=== PATIENT | female | born 1945 | race Caucasian/White ===

== ENCOUNTER → 2018-03-06 08:59 | Outpatient (CLI) | payer MEDICARE, SELFPAY ==
--- NOTE | 2018-03-06 | DI.MG.S_ITS ---
BILATERAL DIGITAL SCREENING MAMMOGRAM 3D/2D WITH CAD: 03/06/2018 CLINICAL: Routine screening. Comparison is made to exams dated: 03/30/2016 mammogram, 01/07/2014 mammogram, and 05/24/2012 mammogram - [facility]. There are scattered fibroglandular elements in both breasts. Current study was also evaluated with a Computer Aided Detection (CAD) system. No significant masses, calcifications, or other findings are seen in either breast. There has been no significant interval change. IMPRESSION: NEGATIVE There is no mammographic evidence of malignancy. A 1 year screening mammogram is recommended. This exam was interpreted at Station ID: [id number]. NOTE: For mammograms, a report in lay terms will be sent to the patient. Approximately 15% of breast malignancies will not be visualized mammographically. In the management of a palpable breast mass, a negative mammogram must not discourage biopsy of a clinically suspicious lesion. Electronically Signed By: Cristobal bui/sandi:03/06/2018 19:24:26 letter sent: Normal Exam ACR BI-RADS Category 1: Negative 3341F
== END ==
PROVIDERS: PCP Physician Assistant; Visit Provider Physician Assistant
DX: Z12.31 Encounter for screening mammogram for malignant neoplasm of breast (principal)
CPT/HCPCS: 77063; 77067

== ENCOUNTER → 2018-03-07 10:16 | Outpatient (CLI) | payer MEDICARE, SELFPAY ==
[2018-03-07 11:40] LABS: Add Manual Diff / Slide Review NO; Basophils Percent Auto 0.8 % (0-2); Eosinophils Percent Auto 0.5 % (2-4); Hematocrit 41.9 % (36-46); Hemoglobin 14.3 g/dL (12.0-16.0); Lymphocytes Percent Auto 33.2 % (25-40); Mean Corpuscular HGB Conc 34.1 % (30-36); Mean Corpuscular Hemoglobin 30.8 PG (26-34); Mean Corpuscular Volume 90.5 fL (80-100); Monocytes Percent Auto 12.7 % (3-14); Neutrophils Absolute Auto 1700 /uL (3000-5900); Neutrophils Percent Auto 52.8 % (50-75); Platelet Count 228 X10^3/uL (150-400); Red Blood Cell Count 4.62 X10^6/uL (4.0-5.2); Red Cell Distribution Width 13.6 % (11.6-14.8); White Blood Cell Count 3.3 X10^3/uL (4.5-11.0)
[2018-03-07 11:59] LABS: Alanine Aminotransferase 26 IU/L (9-52); Albumin 4.4 g/dL (3.5-5.0); Albumin Globulin Ratio 1.6 (1.0-2.8); Alkaline Phosphatase 74 U/L (38-126); Aspartate Aminotransferase 32 IU/L (14-36); BUN Creatinine Ratio 24.4 (6-22); Bilirubin Total 0.6 mg/dL (0.2-1.3); Blood Urea Nitrogen 22 mg/dL (7-17); Carbon Dioxide 31 mmol/L (22-32); Chloride 102 mmol/L (98-107); Cholesterol 190 mg/dL (140-199); Estimated Glomerular Filt Rate > 60.0 mL/min (>60); Globulin 2.8 g/dL (1.7-4.1); Glucose 98 mg/dL (80-110); HDL Cholesterol 85 mg/dL (40-60); HEMOLYSIS < 15 (0-50); LDL Cholesterol Calculated 92 mg/dL (<100); Potassium 4.4 mmol/L (3.4-5.1); Sodium 141 mmol/L (137-145); Total Protein 7.2 g/dL (6.3-8.2); Triglycerides 63 mg/dL (35-150)
[2018-03-07 12:45] LABS: Thyroid Stimulating Hormone 0.03 uIU/mL (0.47-4.68)
== END ==
PROVIDERS: PCP Physician Assistant; Visit Provider Physician Assistant
DX: E78.5 Hyperlipidemia, unspecified (principal); E03.9 Hypothyroidism, unspecified
CPT/HCPCS: 36415; 80053; 80061; 84443; 85025

== ENCOUNTER → 2018-03-28 09:50 | Outpatient (CLI) | payer MEDICARE, SELFPAY ==
--- NOTE | 2018-03-28 | DI.RAD.S_ITS ---
PROCEDURE: XR CERVICAL SPINE 2V OR 3V INDICATIONS: CERVICAL DISC DISORDER TECHNIQUE: 3 view(s) of the cervical spine were acquired. COMPARISON: None. FINDINGS: Bones: No fractures to the C7 level. A 2 mm anterolisthesis of C3 on C4 is present. Degenerative disc disease C4-5, C5-6 and C6-7. The mild levoconvex curvature. Loss of normal lordosis. The lateral masses of C1 appear intact on the odontoid view. No suspicious bony lesions. Soft tissues: No prevertebral soft tissue swelling. IMPRESSION: Multilevel degenerative disc disease, most marked at C4-5 and C5-6. Mild anterolisthesis C3-4. Dictated by: Bennie Cartagena M.D. on 03/28/2018 at 10:26 Approved by: Bennie Cartagena M.D. on 03/28/2018 at 10:29
== END ==
PROVIDERS: PCP Physician Assistant; Visit Provider Physician Assistant
DX: M50.121 Cervical disc disorder at C4-C5 level with radiculopathy (principal); M43.12 Spondylolisthesis, cervical region
CPT/HCPCS: 72040

== ENCOUNTER → 2018-04-26 10:14 | Outpatient (CLI) | payer MEDICARE, SELFPAY ==
[2018-04-26 11:44] LABS: Thyroid Stimulating Hormone 0.44 uIU/mL (0.47-4.68)
== END ==
PROVIDERS: PCP Physician Assistant; Visit Provider Physician Assistant
DX: E03.9 Hypothyroidism, unspecified (principal)
CPT/HCPCS: 36415; 84443

== ENCOUNTER → 2018-06-05 15:39 | Outpatient (CLI) | payer MEDICARE, SELFPAY ==
--- NOTE | 2018-06-05 | DI.MRI.S_ITS ---
PROCEDURE: MR SHOULDER LT WO CON INDICATIONS: BURSITIS OF LEFT SHOULDER TECHNIQUE: Noncontrast oblique coronal T2 fast spin echo with fat saturation, oblique sagittal T1 spin echo and T2 fast spin echo with fat saturation, axial T1 spin echo and T2 fast spin echo with fat saturation through the shoulder. COMPARISON: None. FINDINGS: Image quality: Excellent. Rotator cuff: Tendinosis and moderate grade articular and bursal surface partial-thickness tear involving distal supraspinatus is seen extending from its insertion on humeral head to be musculotendinous junction. There is suggestion of focal full-thickness perforation involving most posterior fibers of the distal supraspinatus at its humeral head insertion. Tendinosis and moderate grade articular surface partial thickness involving distal infraspinatus is seen at its insertion on humeral head extending to musculotendinous junction. Distal subscapularis tendinosis is seen.. Sagittal images demonstrate mild to moderate supraspinatus muscle atrophy. Bones and bursae: No bone marrow contusions or fractures. Mild to moderate acromioclavicular joint and glenohumeral joint osteoarthritis is seen. The acromion demonstrates conventional anatomy, without an os acromiale. Small amount of fluid is noted within glenohumeral joint and subacromial subdeltoid bursa. Capsule and soft tissues: In the absence of intra-articular contrast, there is suggestion of anterior inferior labral tear at 5 to 6:00 position. The glenohumeral ligaments appear intact. The long head of the biceps tendon demonstrates normal location and morphology. The rotator interval appears normal, without fibrosis. The coracohumeral ligament is normal in thickness. IMPRESSION: 1. Tendinosis and moderate grade articular and bursal surface partial-thickness tear involving distal supraspinatus with suggestion of focal full-thickness perforation involving most posterior fibers of the distal supraspinatus at its insertion on humeral head. Tendinosis and low to moderate grade articular surface partial thickness tear involving distal infraspinatus. Distal subscapularis tendinosis. Mild to moderate supraspinatus muscle atrophy. 2. Mild to moderate glenohumeral joint and acromioclavicular joint osteoarthritis. No fracture or dislocation. 3. Finding is suspicious for anterior inferior labral tear at 5 to 6:00 position. Dictated by: Timmy Maxwell M.D. on 06/05/2018 at 17:07 Approved by: Timmy Maxwell M.D. on 06/05/2018 at 17:14
== END ==
PROVIDERS: PCP Physician Assistant; Visit Provider Orthopaedic Surgery
DX: M75.52 Bursitis of left shoulder (principal); M75.112 Incomplete rotator cuff tear or rupture of left shoulder, not specified as traumatic; M19.012 Primary osteoarthritis, left shoulder
CPT/HCPCS: 73221

== ENCOUNTER → 2018-07-26 16:33 | Outpatient (CLI) | payer MEDICARE, SELFPAY ==
--- NOTE | 2018-07-26 17:13 | DI.MRI.S_ITS ---
PROCEDURE: MR LUMBAR SPINE WO CON INDICATIONS: LUMBOSACRAL RADICULOPATHY AT L5 TECHNIQUE: Noncontrast sagittal T1 spin echo and T2 fast echo, sagittal STIR, axial T1 and T2 fast spin echo through the lumbar spine. In cases with scoliosis, additional coronal T2 fast spin echo may be performed. COMPARISON: [facility], , MRI L-SPINE W/O CONTRAST, 10/10/2005, 9:31. FINDINGS: Image quality: Excellent. Alignment and Curvature: There is straightening of normal lumbar curvature. There is trace retrolisthesis of L4 on L5-L5 on S1. Bone Marrow: Marrow is of normal overall signal. Mild reactive endplate changes are present at L4-5, minimal L5-S1. Increased T1 and T2 signal are present at T12, likely hemangioma. Schmorl's nodes are present at the inferior endplates of L3 and L4 and superior endplate of L4 and L5. There is minimal surrounding reactive edema. No acute vertebral body compression fractures. Spinal Cord: Conus medullaris terminates at the L1 level. Visualized cord demonstrates normal signal and size. Paraspinous Soft Tissues: No paravertebral masses. Discs: Severe desiccation is present L4-L5, mild remainder of the lumbar spine. L1-L2: Minimal disc bulge without spinal stenosis or foraminal narrowing. L2-L3: Minimal disc bulge without spinal stenosis. Minimal left foraminal narrowing with facet and ligamentum flavum hypertrophy. L3-L4: Mild disc bulge with mild to moderate spinal stenosis. Mild to moderate left and minimal right foraminal narrowing with facet flavum hypertrophy. L4-L5: Mild disc bulge with moderate spinal stenosis. Bilateral moderate foraminal narrowing, right greater than left with facet and ligamentum flavum hypertrophy. L5-S1: Mild disc bulge with mild spinal stenosis. There is severe narrowing through the left subarticular recess, moderate on the right. Facet hypertrophy is present. IMPRESSION: 1. Multilevel degenerative changes overall demonstrate multilevel areas of interval progression compared to 2006. 2. Multilevel spinal stenosis most prominent L4-5 secondary to disc bulge with contributing effect of facet/ligament implant arthropathy. 3. Multilevel foraminal narrowing most notable at L4-5 and L5-S1 secondary to facet arthropathy. Dictated by: Luann Clements M.D. on 07/29/2018 at 10:16 Approved by: Luann Clements M.D. on 07/29/2018 at 10:41
== END ==
PROVIDERS: PCP Physician Assistant; Visit Provider Orthopaedic Surgery
DX: M47.26 Other spondylosis with radiculopathy, lumbar region (principal); M47.27 Other spondylosis with radiculopathy, lumbosacral region; M48.061 Spinal stenosis, lumbar region without neurogenic claudication; M48.07 Spinal stenosis, lumbosacral region
CPT/HCPCS: 72148

== ENCOUNTER → 2018-09-23 09:00 | Outpatient (CLI) | payer MEDICARE, SELFPAY ==
--- NOTE | 2018-09-23 09:04 | DI.RAD.S_ITS ---
This blank DEXA report has been sent in error by the PACS system. The correct and complete report will be forthcoming in 1-2 days. Thank you for your patience and understanding. Dictated by: Abbey Rice M.D. on 09/23/2018 at 16:58 Approved by: Abbey Rice M.D. on 09/23/2018 at 16:59
[2018-09-23 09:47] LABS: Add Manual Diff / Slide Review NO; Basophils Absolute Auto 0 /uL (0-100); Basophils Percent Auto 0.7 % (0-2); Eosinophils Absolute Auto 100 /uL (0-450); Eosinophils Percent Auto 1.7 % (2-4); Hematocrit 40.9 % (36-46); Hemoglobin 13.7 g/dL (12.0-16.0); Lymphocytes Absolute Auto 900 /uL (1100-4500); Lymphocytes Percent Auto 24.5 % (25-40); Mean Corpuscular HGB Conc 33.5 % (30-36); Mean Corpuscular Hemoglobin 31.1 PG (26-34); Mean Corpuscular Volume 92.8 fL (80-100); Monocytes Absolute Auto 400 /uL (0-900); Monocytes Percent Auto 11.3 % (3-14); Neutrophils Absolute Auto 2400 /uL (1500-7000); Neutrophils Percent Auto 61.8 % (50-75); Platelet Count 209 X10^3/uL (150-400); Red Blood Cell Count 4.41 X10^6/uL (4.0-5.2); Red Cell Distribution Width 13.2 % (11.6-14.8); White Blood Cell Count 3.8 X10^3/uL (4.5-11.0)
[2018-09-23 09:52] LABS: Alanine Aminotransferase 29 IU/L (9-52); Albumin 4.3 g/dL (3.5-5.0); Albumin Globulin Ratio 1.5 (1.0-2.8); Alkaline Phosphatase 72 U/L (38-126); Aspartate Aminotransferase 34 IU/L (14-36); BUN Creatinine Ratio 32.2 (6-22); Bilirubin Total 0.5 mg/dL (0.2-1.3); Blood Urea Nitrogen 29 mg/dL (7-17); Calcium 8.1 mg/dL (8.4-10.2); Carbon Dioxide 27 mmol/L (22-32); Chloride 103 mmol/L (98-107); Cholesterol 194 mg/dL (140-199); Estimated Glomerular Filt Rate > 60.0 mL/min (>60); Globulin 2.9 g/dL (1.7-4.1); Glucose 95 mg/dL (80-110); HDL Cholesterol 87 mg/dL (40-60); HEMOLYSIS 32 (0-50); LDL Cholesterol Calculated 96 mg/dL (<100); Potassium 4.5 mmol/L (3.4-5.1); Sodium 139 mmol/L (137-145); Total Protein 7.2 g/dL (6.3-8.2); Triglycerides 57 mg/dL (35-150)
[2018-09-23 10:54] LABS: Thyroid Stimulating Hormone 1.06 uIU/mL (0.47-4.68)
== END ==
PROVIDERS: PCP Physician Assistant; Visit Provider Physician Assistant
DX: M85.851 Other specified disorders of bone density and structure, right thigh (principal); Z78.0 Asymptomatic menopausal state; E03.9 Hypothyroidism, unspecified; E78.2 Mixed hyperlipidemia; Z82.62 Family history of osteoporosis
CPT/HCPCS: 36415; 77080; 80053; 80061; 84443; 85025

== ENCOUNTER → 2018-11-15 10:18 | Outpatient (CLI) | payer MEDICARE, SELFPAY ==
[2018-11-15 11:22] LABS: Alanine Aminotransferase 33 IU/L (9-52); Albumin 4.4 g/dL (3.5-5.0); Albumin Globulin Ratio 1.6 (1.0-2.8); Alkaline Phosphatase 79 U/L (38-126); Aspartate Aminotransferase 34 IU/L (14-36); Bilirubin Total 0.4 mg/dL (0.2-1.3); Blood Urea Nitrogen 30 mg/dL (7-17); Calcium 8.9 mg/dL (8.4-10.2); Carbon Dioxide 27 mmol/L (22-32); Chloride 105 mmol/L (98-107); Estimated Glomerular Filt Rate 54.7 mL/min (>60); Globulin 2.7 g/dL (1.7-4.1); Glucose 97 mg/dL (80-110); HEMOLYSIS < 15 (0-50); Potassium 4.2 mmol/L (3.4-5.1); Sodium 140 mmol/L (137-145); Total Protein 7.1 g/dL (6.3-8.2)
== END ==
PROVIDERS: Family Provider Physician Assistant; PCP Physician Assistant; Visit Provider Physician Assistant
DX: Z79.899 Other long term (current) drug therapy (principal)
CPT/HCPCS: 36415; 80053

== ENCOUNTER → 2019-03-13 11:44 | Outpatient (CLI) | payer MEDICARE, SELFPAY ==
[2019-03-13 12:19] LABS: Add Manual Diff / Slide Review NO; Basophils Absolute Auto 0 /uL (0-100); Eosinophils Absolute Auto 0 /uL (0-450); Eosinophils Percent Auto 0.3 % (2-4); Hematocrit 41.8 % (36-46); Hemoglobin 14.2 g/dL (12.0-16.0); Lymphocytes Absolute Auto 1200 /uL (1100-4500); Lymphocytes Percent Auto 31.1 % (25-40); Mean Corpuscular HGB Conc 33.9 % (30-36); Mean Corpuscular Hemoglobin 30.8 PG (26-34); Monocytes Absolute Auto 400 /uL (0-900); Monocytes Percent Auto 10.9 % (3-14); Neutrophils Absolute Auto 2200 /uL (1500-7000); Neutrophils Percent Auto 56.7 % (50-75); Platelet Count 211 X10^3/uL (150-400); Red Blood Cell Count 4.59 X10^6/uL (4.0-5.2); White Blood Cell Count 3.8 X10^3/uL (4.5-11.0)
[2019-03-13 12:21] LABS: Alanine Aminotransferase 21 IU/L (9-52); Albumin 4.5 g/dL (3.5-5.0); Albumin Globulin Ratio 1.7 (1.0-2.8); Alkaline Phosphatase 70 U/L (38-126); Aspartate Aminotransferase 31 IU/L (14-36); BUN Creatinine Ratio 35.6 (6-22); Bilirubin Total 0.5 mg/dL (0.2-1.3); Blood Urea Nitrogen 32 mg/dL (7-17); Carbon Dioxide 27 mmol/L (22-32); Chloride 106 mmol/L (98-107); Cholesterol 193 mg/dL (140-199); Estimated Glomerular Filt Rate > 60.0 mL/min (>60); Globulin 2.7 g/dL (1.7-4.1); Glucose 95 mg/dL (80-110); HDL Cholesterol 91 mg/dL (40-60); HEMOLYSIS < 15 (0-50); LDL Cholesterol Calculated 89 mg/dL (<100); Potassium 4.4 mmol/L (3.4-5.1); Sodium 141 mmol/L (137-145); Total Protein 7.2 g/dL (6.3-8.2); Triglycerides 63 mg/dL (35-150)
== END ==
PROVIDERS: PCP Physician Assistant; Visit Provider Physician Assistant
DX: E03.9 Hypothyroidism, unspecified (principal); E78.2 Mixed hyperlipidemia; R03.0 Elevated blood-pressure reading, without diagnosis of hypertension
CPT/HCPCS: 36415; 80053; 80061; 84443; 85025

== ENCOUNTER → 2020-01-01 11:23 | Outpatient (CLI) | payer MEDICARE, SELFPAY ==
[2020-01-01 12:39] LABS: Add Manual Diff / Slide Review NO; Basophils Absolute Auto 0 /uL (0-100); Basophils Percent Auto 0.7 % (0-2); Eosinophils Absolute Auto 0 /uL (0-450); Eosinophils Percent Auto 0.3 % (2-4); Hematocrit 40.5 % (36-46); Hemoglobin 13.8 g/dL (12.0-16.0); Lymphocytes Absolute Auto 1100 /uL (1100-4500); Lymphocytes Percent Auto 30.1 % (25-40); Mean Corpuscular HGB Conc 34.1 % (30-36); Mean Corpuscular Hemoglobin 30.9 PG (26-34); Mean Corpuscular Volume 90.6 fL (80-100); Monocytes Absolute Auto 400 /uL (0-900); Monocytes Percent Auto 11.6 % (3-14); Neutrophils Absolute Auto 2100 /uL (1500-7000); Neutrophils Percent Auto 57.3 % (50-75); Platelet Count 222 X10^3/uL (150-400); Red Blood Cell Count 4.47 X10^6/uL (4.0-5.2); Red Cell Distribution Width 13.7 % (11.6-14.8); White Blood Cell Count 3.7 X10^3/uL (4.5-11.0)
[2020-01-01 13:17] LABS: Alanine Aminotransferase 22 IU/L (<35); Albumin 4.3 g/dL (3.5-5.0); Albumin Globulin Ratio 1.4 (1.0-2.8); Alkaline Phosphatase 88 U/L (38-126); Aspartate Aminotransferase 34 IU/L (14-36); BUN Creatinine Ratio 24.8 (6-22); Bilirubin Total 0.5 mg/dL (0.2-1.3); Blood Urea Nitrogen 31 mg/dL (7-17); Calcium 9.2 mg/dL (8.4-10.2); Carbon Dioxide 27 mmol/L (22-32); Chloride 102 mmol/L (98-107); Cholesterol 193 mg/dL (140-199); Estimated Glomerular Filt Rate 42.1 mL/min (>60); Glucose 98 mg/dL (80-110); HDL Cholesterol 70 mg/dL (40-60); HEMOLYSIS < 15 (0-50); LDL Cholesterol Calculated 108 mg/dL (<100); Potassium 4.7 mmol/L (3.4-5.1); Sodium 138 mmol/L (137-145); Total Protein 7.3 g/dL (6.3-8.2); Triglycerides 75 mg/dL (35-150)
[2020-01-01 13:48] LABS: TSH w/ Reflex to FT4 0.24 uIU/mL (0.47-4.68)
[2020-01-01 14:17] LABS: Free T4, Direct Thyroxine 1.57 ng/dL (0.78-2.19)
== END ==
PROVIDERS: PCP Physician Assistant; Referring Provider Physician Assistant; Visit Provider Physician Assistant
DX: E03.9 Hypothyroidism, unspecified (principal)
CPT/HCPCS: 36415; 80053; 80061; 84439; 84443; 85025

== ENCOUNTER → 2020-01-25 14:09 | Outpatient (CLI) | payer MEDICARE, SELFPAY ==
[2020-01-26 08:39] LABS: COVID19 Sendout Not Detected (Not Detect)
== END ==
PROVIDERS: PCP Physician Assistant; Visit Provider Physician Assistant
DX: Z01.812 Encounter for preprocedural laboratory examination (principal)
CPT/HCPCS: 87635

== ENCOUNTER → 2020-02-10 12:54 | Outpatient (CLI) | payer MEDICARE, SELFPAY ==
--- NOTE | 2020-02-10 | DI.RAD.S_ITS ---
PROCEDURE: FL BARIUM SWALLOW W SPEECH INDICATIONS: Dysphonia TECHNIQUE: Examination was conducted in conjunction with speech pathology per standard protocol. In the lateral projection, filming was performed of the patient swallowing. AP projection filming may also be performed with patient swallowing. COMPARISON: None. FINDINGS: Function: The oral preparatory phase appears normal, with proper containment. The subsequent oral propulsive phase, pharyngeal phase, and esophageal phase of swallowing also appear normal with all proffered substances. No laryngotracheal penetration or aspiration. No pathologic vallecular pooling. Morphology: No cricopharyngeal bar is identified. No cervical esophageal webs. No Zenker's diverticulum. No strictures. IMPRESSION: Normal examination. There is also referred to the dedicated speech therapy report which will be independently generated. Dictated by: Ceasar Dimas M.D. on 02/10/2020 at 14:31 Approved by: Ceasar Dimas M.D. on 02/10/2020 at 14:31
--- NOTE | 2020-02-10 15:46 | ST.SWALLOW ---
Visit Care Team Role Provider Type Shanti Ariza PA-C Primary Care Provider Advanced Gymnasium Teacher Specialty: Internal Medicine Address: [address] [place] [address], [address] Email: [email or web address] Weiner MD Attending Provider Physician Referring Provider Specialty: Ear, Nose, Throat Address: [address] [place] [address], [address] Email: [email or web address] Modified Barium Swallow Study DRAG SEINER Modified Barium Swallow Study Start: 02/10/20 15:19 Freq: Status: Active Protocol: Document 02/10/20 15:20 LNK (Rec: 02/10/20 15:46 LNK [email or web address]) Modified Barium Swallow Study Total Time Visit Start Time 13:30 Visit Stop Time 14:00 Total Visit Minutes 30 Visit Information Visit Number [address] Weiner Reason for Referral dysphagia; unilateral vocal fold paralysis Setting Setting Outpatient Care Patient Information Identification Type Name,Date of Patient History Pt was referred for a Modified Barium Swallow Study by Dr. Weiner, who diagnosed a unilateral paralyzed vocal fold. The pt reported that when she was approximately 20, she had surgery to remove a goiter. After that surgery, she was diagnosed with vocal fold paralysis. Over the years, the pt has been able to speak with a hoarse/harsh vocal quality and has had intermittent episodes of choking. She further reported that recently, she has been choking more frequently. She described foods/liquids/ medications becoming stuck in her throat, pointing to the area around her sternal notch . She also noted that when she swallows the food/liquid has to go over a big lump. Pt reported that she was referred to [facility] for videostroboscopy. The ENT confirmed the paralysis of the left fold. He also noted that there was reduced vocal fold approximation of the folds, which could account for the pt's choking episodes. Subjective Observations Pt was seated in the flouroscopy chair with directions provided as well as a description of the procedure. The pt noted she understood and agreed to proceed. Patient Positioning Position View A/P Imaging Lateral View Textures Administered Trials Presented Thin Liquid via Spoon,Thin Liquid via Cup,Regular Textures,Barium Tablet Oral Phase Source: MBSIMP (TM) (C) Bolus Specific Scoring Grid Lip Closure WFL Tongue Control During Bolus Hold WFL Bolus Prep/Mastication WFL Bolus Transport/Lingual Motion WFL A/P Lingual Propulsion Delay No Oral Residue WFL Residue Clearing WFL Nasal Regurgitation No Additional Oral Phase Observations Oral phase WFL. Good oral hygiene noted Pharyngeal Phase Source: MBSIMP (TM) (C) Bolus Specific Scoring Grid Delayed Initiation of Pharyngeal Swallow No Soft Palate Elevation WFL Tongue Base Strength/Range of Motion WFL Residue Along the Tongue Base Trace Clearance of Residue Along Tongue Base WFL Laryngeal Elevation WFL Anterior Hyoid Movement WFL Vallecular Residue Trace to minimal - cleared with spontaneous swallow Clearance of Vallecular Residue WFL Laryngeal Vestibular Closure WFL Pharyngeal Stripping Wave WFL Posterior Pharyngeal Wall Residue No Upper Esophageal Sphincter Opening WFL Residue in the Pyriform Sinuses No Esophageal Clearance Upright Position Mild Impairment Pharyngoesophageal Backflow Observed No Additional Pharyngeal Phase Observations A cricopharyngeal bar was observed while viewing the MBS in slow motion. Additionally there appeared to be a pocketing of residue below the UES (near C6-C7 and area of sternal notch for both liquids and solids. The pooled residue within the pocket eventually cleared spontaneously. Residual was also observed to clear the upper 1/3 of the esophagus slowly. A/P View Textures Administered Trials Presented Thin Liquid via Cup A/P View Observations Pharyngeal Contraction WFL Vocal Fold Function Decreased Approximation Left Esophageal Function Slowed Clearing,Stasis Esophageal Clearance Upright Position Mild Impairment Clinical Impressions Dysphagia Type No oropharyngeal dysphagia observed Rehabilitation Potential Good Patient Appropriate for Therapy No: Exercises for increasing vocal fold approximation Recommendations Treatment Plan Therapy Recommendations Outpatient Speech Therapy, Vocal Fold Adduction Exercises Additional Therapy Recommendations Targeting vocal fold approximation could also benefit pt's vocal quality Recommended Referrals Primary Care Physician,ENT Consult Additional Recommended Referrals GI consult re: pocketing in upper 1/3 of esophagus and slowed clearance Short Term Goals Pt will be ablt to independently perform vocal fold approximations to increase strength and ROM of the right fold. Open Hearth Furnace Operator Goals Reduced frequency of choking episodes. Improved vocal quality.
== END ==
PROVIDERS: PCP Physician Assistant; Referring Provider Otolaryngology; Visit Provider Otolaryngology
DX: R49.0 Dysphonia (principal); R13.19 Other dysphagia; J38.01 Paralysis of vocal cords and larynx, unilateral
CPT/HCPCS: 74230; 92611

== ENCOUNTER → 2020-03-08 15:28 | Outpatient (CLI) | payer MEDICARE, SELFPAY ==
[2020-03-08 16:53] LABS: Add Manual Diff / Slide Review NO; Basophils Absolute Auto 0 /uL (0-100); Basophils Percent Auto 0.9 % (0-2); Eosinophils Absolute Auto 0 /uL (0-450); Eosinophils Percent Auto 0.5 % (2-4); Hematocrit 40.9 % (36-46); Hemoglobin 13.6 g/dL (12.0-16.0); Lymphocytes Absolute Auto 1400 /uL (1100-4500); Lymphocytes Percent Auto 33.3 % (25-40); Mean Corpuscular HGB Conc 33.2 % (30-36); Mean Corpuscular Hemoglobin 30.2 PG (26-34); Mean Corpuscular Volume 90.9 fL (80-100); Monocytes Absolute Auto 500 /uL (0-900); Monocytes Percent Auto 11.2 % (3-14); Neutrophils Absolute Auto 2200 /uL (1500-7000); Neutrophils Percent Auto 54.1 % (50-75); Platelet Count 211 X10^3/uL (150-400); Red Cell Distribution Width 13.5 % (11.6-14.8); White Blood Cell Count 4.1 X10^3/uL (4.5-11.0)
[2020-03-08 17:22] LABS: Alanine Aminotransferase 20 IU/L (<35); Albumin 4.2 g/dL (3.5-5.0); Albumin Globulin Ratio 1.8 (1.0-2.8); Alkaline Phosphatase 97 U/L (38-126); Aspartate Aminotransferase 31 IU/L (14-36); BUN Creatinine Ratio 29.5 (6-22); Bilirubin Total 0.4 mg/dL (0.2-1.3); Blood Urea Nitrogen 31 mg/dL (7-17); Calcium 9.2 mg/dL (8.4-10.2); Carbon Dioxide 25 mmol/L (22-32); Chloride 106 mmol/L (98-107); Estimated Glomerular Filt Rate 51.5 mL/min (>60); Globulin 2.3 g/dL (1.7-4.1); Glucose 89 mg/dL (80-110); HEMOLYSIS < 15 (0-50); Potassium 4.6 mmol/L (3.4-5.1); Sodium 138 mmol/L (137-145); Total Protein 6.5 g/dL (6.3-8.2)
[2020-03-08 17:54] LABS: TSH w/ Reflex to FT4 0.63 uIU/mL (0.47-4.68)
== END ==
PROVIDERS: PCP Physician Assistant; Referring Provider Physician Assistant; Visit Provider Physician Assistant
DX: E03.9 Hypothyroidism, unspecified (principal)
CPT/HCPCS: 36415; 80053; 84443; 85025

== ENCOUNTER → 2020-03-12 15:34 | Outpatient (ROUT) | payer MEDICARE, SELFPAY | PROVIDERS: PCP Physician Assistant; Visit Provider Physician Assistant | DX: N32.81 Overactive bladder (principal) | CPT/HCPCS: 87086 ==

== ENCOUNTER → 2020-03-14 11:04 | Outpatient (CLI) | payer MEDICARE, SELFPAY ==
[2020-03-15 22:09] LABS: COVID19 Sendout Not Detected (Not Detect)
== END ==
PROVIDERS: PCP Physician Assistant; Visit Provider Physician Assistant
DX: Z11.59 Encounter for screening for other viral diseases (principal)
CPT/HCPCS: 87635

== ENCOUNTER 2020-03-17 08:12 | Day surgery (SDC) | payer MEDICARE, SELFPAY ==
--- NOTE | 2020-03-17 07:13 | P.OP_ITS ---
Operative Date/Time/Diagnoses Date of procedure: 03/17/20 Time of procedure: 09:45 Procedure & Clinicians Procedure: Preoperative diagnoses: 1. Right significant nuclear sclerotic and cortical cataract. 2. Left vocal cord paresis. Postoperative diagnoses: 1. Cataract removed by phacoemulsification with placement of posterior chamber intraocular lens. Procedure: Phacoemulsification with posterior chamber intraocular lens implant Surgeon: Araceli Lutz MD Complications: None Specimen: None Implant: ZCBOO+23.0 Blood loss: None Anesthesia: Retrobulbar with monitored standby Description of procedure: Patient presents with a complaint of decreased vision for driving and reading due to cataract which is affecting activities of daily living. The patient wants surgery to improve vision. She has left vocal cord paresis following previous anesthesia for thyroid surgery. The patient was taken to the operating room and given IV sedation. A retrobulbar block consisting of 6 cc of 2% xylocaine without epinephrine mixed half and half with 0.5% Marcaine with 1 cc of hyaluronidase added is placed between the medial and lateral 1/3 of the inferior orbital rim. The eye is manually massaged for 30 sec, prepped using Betadine solution, and draped in the usual sterile fashion. Temporal approach was made, a 1 mm side-port incision was made 90? from the proposed clear corneal incision position. Phenylephrine 1.5% mixed with 1% xylocaine 0.2 cc was placed into the anterior chamber. Viscoat followed by Susana was then placed. A 2.6 mm clear incision with a 2.6 mm blade was placed. A 360 degree capsulorrhexis style capsulotomy was then performed with a cystitome needle on a Healon. Hydrodelineation and hydrodissection were performed. The phacoemulsification unit is introduced, and sculpting notice used to groove the central lens. It is then removed in chopping mode. Epi nucleus is removed with epinuclear mode and irrigation aspiration was used to remove the peripheral cortex. The posterior capsule is polished. The intraocular lens is selected, inspected, power confirmed, and placed in the posterior chamber. The wound was stromally hydrated and tested for leaks, there was none and it was left sutureless. Vigamox 0.1 cc was placed into the anterior chamber. Kenalog 0.2 cc was placed in the superior subconjunctival space. A drop of antibiotic and was placed and the eye was patched and shielded. The patient was stable and returned to the recovery room in excellent condition. Dictated by: Araceli Lutz MD Copy to: [facility] Same procedure as scheduled: Yes
--- NOTE | 2020-03-17 07:13 | PM.PREOP ---
Pre-operative Note COVID-19 COVID-19 status: Negative Interval Note History & Physical reviewed/Exam performed by Physician: Yes Changes to H&P: No
[2020-03-17 08:29] VITALS: BP 157/78; PULSE 76; RESP 16; TEMP 36.1; O2SAT 98; BMI 35.5
[2020-03-17] MEDS: PROPARACAINE 0.5% OPHTH SOL 2 DROPS EYE-OP (08:45)
[2020-03-17] MEDS: CATARACT EYE COMPOUND (10 DROPS/SYRINGE) 3 DROPS EYE-OP (08:47)
[2020-03-17] MEDS: PHENYLEPHRINE/LIDOCAINE VIAL (OR) 0.2 ML EYE-OP (10:09)
[2020-03-17] MEDS: LIDOCAINE 2% 4 ML, BUPIVACAINE 0.5% (PF) 4 ML, HYALURONIDASE 150 UNIT INJ (10:10)
[2020-03-17] MEDS: TRIAMCINOLONE 50 MG/5 ML VIAL INJ (10:12)
[2020-03-17] MEDS: MOXIFLOXACIN INJ 5 MG/ML VIAL EYE-OP (10:12)
[2020-03-17] MEDS: HYALURONATE SODIUM 10 MG/ML SYRINGE INJ (10:13)
[2020-03-17] MEDS: CHONDROIDTIN/SOD HYALURONATE 1.05 ML SYRINGE INTRAOCULA (10:13)
[2020-03-17] MEDS: ERYTHROMYCIN OPHTH 1 GM OINT 1 APPLIC EYE-RIGHT (10:13)
[2020-03-17] MEDS: BALANCED SALT IRRIG SOLN NO.2 500 ML, EPINEPHrine 1 MG IRR (10:14)
[2020-03-17 10:25] VITALS: BP 135/75; PULSE 69; RESP 16; TEMP 36.1; O2SAT 98
--- NOTE | 2020-03-17 15:46 | SUR.PHASEII ---
1045-Pt dcd in stable condition via wc to curbside. Taking po fluids well, all dc instructions given and pt verbalizes understanding, iv dcd site clear. No c\o
== END 2020-03-17 10:45 | disposition home or self-care (01) ==
LOC: OR 08:17
PROVIDERS: PCP Physician Assistant; Referring Provider Physician Assistant; Visit Provider Ophthalmology
PROC: (CPT 66984; principal; 2020-03-17 09:45)
DX: H25.811 Combined forms of age-related cataract, right eye (principal); H43.813 Vitreous degeneration, bilateral; J38.01 Paralysis of vocal cords and larynx, unilateral; H04.223 Epiphora due to insufficient drainage, bilateral
CPT/HCPCS: 66984; J0171; J2250; J2704; J3010; J3301; J3470

== ENCOUNTER → 2020-03-28 11:01 | Outpatient (CLI) | payer MEDICARE, SELFPAY ==
[2020-03-29 11:00] LABS: COVID19 Sendout Not Detected (Not Detect)
== END ==
PROVIDERS: PCP Physician Assistant; Visit Provider Nurse Practitioner
DX: Z11.59 Encounter for screening for other viral diseases (principal)
CPT/HCPCS: 87635

== ENCOUNTER 2020-03-31 07:28 | Day surgery (SDC) | payer MEDICARE, SELFPAY ==
--- NOTE | 2020-03-30 18:46 | PM.PREOP ---
Pre-operative Note COVID-19 COVID-19 status: Negative Interval Note History & Physical reviewed/Exam performed by Physician: Yes Changes to H&P: No
--- NOTE | 2020-03-31 07:11 | PM.OP.1 ---
Operative Date/Time/Diagnoses Date of procedure: 03/31/20 Time of procedure: 09:45 Procedure & Clinicians Procedure: Preoperative diagnoses: 1. Left nuclear sclerotic and cortical cataract. 2. Left vocal cord paralysis. Postoperative diagnoses: 1. Cataract removed by phacoemulsification with placement of posterior chamber intraocular lens. Procedure: Phacoemulsification with posterior chamber intraocular lens implant Surgeon: Araceli Lutz MD Complications: None Specimen: None Implant: ZCBOO+23.0 Blood loss: None Anesthesia: Retrobulbar with monitored standby Description of procedure: Patient presents with a complaint of decreased vision due to cataract which is affecting activities of daily living affecting distance and near vision. The patient wants surgery to improve vision. The patient was taken to the operating room and given IV sedation. A retrobulbar block consisting of 6 cc of 2% xylocaine without epinephrine mixed half and half with 0.5% Marcaine with 1 cc of hyaluronidase added is placed between the medial and lateral 1/3 of the inferior orbital rim. The eye is manually massaged for 30 sec, prepped using Betadine solution, and draped in the usual sterile fashion. Temporal approach was made, a 1 mm side-port incision was made 90? from the proposed clear corneal incision position. Phenylephrine 1.5% mixed with 1% xylocaine 0.2 cc was placed into the anterior chamber. Viscoat followed by Susana was then placed. A 2.6 mm clear incision with a 2.6 mm blade was placed. A 360 degree capsulorrhexis style capsulotomy was then performed with a cystitome needle on a Healon. Hydrodelineation and hydrodissection were performed. The phacoemulsification unit is introduced, and sculpting notice used to groove the central lens. It is then removed in chopping mode. Epi nucleus is removed with epinuclear mode and irrigation aspiration was used to remove the peripheral cortex. The posterior capsule is polished. The intraocular lens is selected, inspected, power confirmed, and placed in the posterior chamber. The wound was stromally hydrated and tested for leaks, there was none and it was left sutureless. Vigamox 0.1 cc was placed into the anterior chamber. Kenalog 0.2 cc was placed in the superior subconjunctival space. A drop of antibiotic and was placed and the eye was patched and shielded. The patient was stable and returned to the recovery room in excellent condition. Dictated by: Araceli Lutz MD Copy to: [facility] Same procedure as scheduled: Yes
[2020-03-31] MEDS: CATARACT EYE COMPOUND (10 DROPS/SYRINGE) 3 DROPS EYE-OP (08:59)
[2020-03-31] MEDS: PROPARACAINE 0.5% OPHTH SOL 2 DROPS EYE-OP (09:00)
[2020-03-31 09:05] VITALS: BP 153/83; PULSE 75; RESP 20; TEMP 36.7; O2SAT 100; BMI 36.6
[2020-03-31] MEDS: ERYTHROMYCIN OPHTH 1 GM OINT 1 APPLIC EYE-LEFT (10:18)
[2020-03-31] MEDS: CHONDROIDTIN/SOD HYALURONATE 1.05 ML SYRINGE INTRAOCULA (10:18)
[2020-03-31] MEDS: PHENYLEPHRINE/LIDOCAINE VIAL (OR) 0.2 ML EYE-OP (10:19)
[2020-03-31] MEDS: MOXIFLOXACIN INJ 5 MG/ML VIAL EYE-OP (10:19)
[2020-03-31] MEDS: HYALURONATE SODIUM 10 MG/ML SYRINGE INJ (10:19)
[2020-03-31] MEDS: BALANCED SALT IRRIG SOLN NO.2 500 ML, EPINEPHrine 1 MG IRR (10:20)
[2020-03-31] MEDS: TRIAMCINOLONE 50 MG/5 ML VIAL INJ (10:20)
[2020-03-31] MEDS: LIDOCAINE 2% 4 ML, BUPIVACAINE 0.5% (PF) 4 ML, HYALURONIDASE 150 UNIT INJ (10:21)
[2020-03-31 10:45] VITALS: BP 146/74; PULSE 75; RESP 16; TEMP 36.1; O2SAT 100
== END 2020-03-31 10:55 | disposition home or self-care (01) ==
LOC: OR 07:31
PROVIDERS: PCP Physician Assistant; Referring Provider Physician Assistant; Visit Provider Ophthalmology
PROC: (CPT 66984; principal; 2020-03-31 09:45)
DX: H25.812 Combined forms of age-related cataract, left eye (principal); J38.01 Paralysis of vocal cords and larynx, unilateral
CPT/HCPCS: 66984; J0171; J2704; J3301; J3470

== ENCOUNTER 2020-05-04 08:30 | Outpatient (RCR) | payer MEDICARE, SELFPAY ==
--- NOTE | 2020-03-08 16:25 | ST.IPDYTX ---
Visit Care Team Role Provider Type Shanti Ariza PA-C Primary Care Provider Advanced Fifth Hand Specialty: Internal Medicine Address: [address] [place] [address], [address] Email: [email or web address] Weiner MD Attending Provider Physician Referring Provider Specialty: Ear, Nose, Throat Address: [address] [place] [address], [address] Email: [email or web address] COFFERDAM Dysphagia Treatment MUCKER COFFERDAM Dysphagia Treatment Start: 03/08/20 14:26 Freq: Status: Active Protocol: Document 03/08/20 15:25 LNK (Rec: 03/08/20 15:32 LNK [email or web address]) Dysphagia Treatment Session Time Visit Start Time 14:30 Visit Stop Time 15:20 Total Visit Minutes 50 Visit Information Visit Number 1 Plan of Care Dates 03/08/20-05/08/20 Setting Assessment Location Outpatient Care Visit Type Note Type Treatment Note Next Note Type Next Note Type Treatment Note Patient Information Identification Type Name,Picture Subjective Observations Pt was on time. She brought a copy of Dr Guzman's stroboscopy stills. Pt has unilateral vocal fold paralysis, left side. Pt had MBSS recently which showed minimal to mild pharyngeal phase dysphagia. Treatment Treatment Activities Reviewed Mela's MBSS with her describing the results of her evaluation. A CGF of the normal swallow was presented to Mela in order to help her understand the anatomy/ physiology of swallowing. The anatomy of her paralysis and effect on swallowing was also discussed. Review and demonstration with Mela of the different exercises prescribed was completed. it is recommended that Mela return in 1 week for follow up and then every 2-3 weeks afterward to monitor swallowing and vocal quality. Assessment Patient Response to Treatment Excellent Rehab Potential Good Diet Recommendations Recommendations Continue Current Diet Medication Recommendations As Tolerated Treatment Plan Appropriate for Continued Therapy Yes Therapy Recommendations Oropharyngeal exercises are recommended to 1) increase adduction strength of the vocal folds and 2) increase airway protection at the vocal fold level Tongue base and laryngeal elevation exercises targeting improved hyolaryngeal elevation and increased airway protection at the laryngeal level. Dysphagia Goals Mela will perform HEP 2-3x /day gradually increasing the frequency of exercise repetitions per day Mela will report less episodes of choking per day. Additionally, Mela will report improved vocal endurance and quality when she speaks
--- NOTE | 2020-03-15 14:19 | ST.IPDYTX ---
Visit Care Team Role Provider Type Shanti Ariza PA-C Primary Care Provider Advanced Senior Hydrogeologist Specialty: Internal Medicine Address: [address] [place] [address], [address] Email: [email or web address] Weiner MD Attending Provider Physician Referring Provider Specialty: Ear, Nose, Throat Address: [address] [place] [address], [address] Email: [email or web address] ELECTRICAL TECHNICIAN Dysphagia Treatment ELECTRICAL TECHNICIAN Dysphagia Treatment Start: 03/08/20 14:26 Freq: Status: Active Protocol: Document 03/15/20 13:26 LNK (Rec: 03/15/20 14:19 LNK [email or web address]) Dysphagia Treatment Session Time Visit Start Time 13:30 Visit Stop Time 14:15 Total Visit Minutes 50 Visit Information Visit Number 2 Plan of Care Dates 03/08/20-05/08/20 Setting Assessment Location Outpatient Care Visit Type Note Type Treatment Note Next Note Type Next Note Type Treatment Note Patient Information Identification Type Name,Picture Treatment Treatment Activities Reviewed swallowing exercises and she demonstrated exercises prescribed. She remarked that the [place] is difficult after the initial 4, then she has to concentrate on the procedure. Additionally, Mela noted that since she has been working the exercises , she has not been awakened in the night with difficulty breathing as her tongue had obstructed her pharynx. Added a head turn to the right when swallowing to reduce the sensation of sticking in her throat/coughing. Mela return in 2 week for follow up and then every 2-3 weeks afterward to monitor swallowing and vocal quality. Assessment Patient Response to Treatment Excellent Rehab Potential Good Diet Recommendations Recommendations Continue Current Diet Medication Recommendations As Tolerated Treatment Plan Appropriate for Continued Therapy Yes Therapy Recommendations Orolaryngeal exercises are recommended to 1) increase adduction strength of the vocal folds and 2) increase airway protection at the vocal fold level Tongue base and laryngeal elevation exercises targeting improved hyolaryngeal elevation and increased airway protection at the laryngeal level. Dysphagia Goals Mela will perform HEP 2-3x /day gradually increasing the frequency of exercise repetitions per day Mela will report less episodes of choking per day. Additionally, Mela will report improved vocal endurance and quality when she speaks Referrals/Other Recommended Referrals Primary Care Physician,ENT Consult
--- NOTE | 2020-03-29 15:15 | ST.IPDYTX ---
Visit Care Team Role Provider Type Shanti Ariza PA-C Primary Care Provider Advanced Enrollment Processor Specialty: Internal Medicine Address: [address] [place] [address], [address] Email: [email or web address] Weiner MD Attending Provider Physician Referring Provider Specialty: Ear, Nose, Throat Address: [address] [place] [address], [address] Email: [email or web address] HEWER Dysphagia Treatment TIMBER HEWER Dysphagia Treatment Start: 03/08/20 14:26 Freq: Status: Active Protocol: Document 03/29/20 14:25 LNK (Rec: 03/29/20 15:15 LNK [email or web address]) Dysphagia Treatment Session Time Visit Start Time 14:30 Visit Stop Time 15:05 Total Visit Minutes 35 Visit Information Visit Number 3 Plan of Care Dates 03/08/20-05/08/20 Setting Assessment Location Outpatient Care Visit Type Note Type Treatment Note Next Note Type Next Note Type Treatment Note Patient Information Identification Type Name,Picture Subjective Observations Pt was on time. She brought a copy of Dr Guzman's stroboscopy stills. Pt has unilateral vocal fold paralysis, left side. Pt had MBSS recently which showed minimal to mild pharyngeal phase dysphagia. Treatment Treatment Activities Reviewed swallowing exercises and she demonstrated exercises prescribed. Pt reported that her swallowing, when turning her head to the right, has improved. It feels easier to swallow. She also reported ` 3 incidents of a cough when swallowing, which she notes is a big improvement. Finally, Mela noted that since she has been working the exercises , she has not been awakened in the night with difficulty breathing as her tongue had obstructed her pharynx. Mela to return in 3 weeks for follow up and then every 2 -3 weeks afterward to monitor swallowing and vocal quality. Assessment Patient Response to Treatment Excellent Rehab Potential Good Assessment of Improvement Despite the improvement in her swallowing, Mela reports that her voice still has a rough quality. She added that when she talks a lot, her voice gets weaker. Assured her that the swallowing exercises will indirectly impact her vocal fold adduction. Adduction exercises have been assigned to her. Provided information about vocal fold augmentation. Continue Diet Recommendations Recommendations Continue Current Diet Medication Recommendations As Tolerated Treatment Plan Appropriate for Continued Therapy Yes Therapy Recommendations Orolaryngeal exercises are recommended to 1) increase adduction strength of the vocal folds and 2) increase airway protection at the vocal fold level Tongue base and laryngeal elevation exercises targeting improved hyolaryngeal elevation and increased airway protection at the laryngeal level. Dysphagia Goals Mela will perform HEP 2-3x /day gradually increasing the frequency of exercise repetitions per day Mela will report less episodes of choking per day. Additionally, Mela will report improved vocal endurance and quality when she speaks Referrals/Other Recommended Referrals Primary Care Physician,ENT Consult
--- NOTE | 2020-05-04 09:18 | ST.IPDYTX ---
Visit Care Team Role Provider Type Shanti Ariza PA-C Primary Care Provider Advanced Sheet Metal Pattern Cutter Specialty: Internal Medicine Address: [address] [place] [address], [id number] Email: [email or web address] Torres Weiner MD Attending Provider Physician Referring Provider Specialty: Ear, Nose, Throat Address: [address] [place] [address], [id number] Email: [email or web address] MANAGER BAR Dysphagia Treatment MANAGER BAR Dysphagia Treatment Start: 03/08/20 14:26 Freq: Status: Active Protocol: Document 05/04/20 08:31 LNK (Rec: 05/04/20 09:18 LNK [email or web address]) Dysphagia Treatment Session Time Visit Start Time 08:30 Visit Stop Time 09:15 Total Visit Minutes 45 Visit Information Visit Number 4 Plan of Care Dates 03/08/20-05/08/20 Setting Assessment Location Outpatient Care Visit Type Note Type Treatment Note Next Note Type Next Note Type Discharge Summary Patient Information Identification Type Name,Picture Subjective Observations Pt was on time for appointment Treatment Treatment Activities Reviewed swallowing exercises and she demonstrated exercises prescribed. Pt reported that her swallowing,has improved significantly. She has had no coughing episodes and feels te exercises have been helpfu . Reviewed her current HEP and she is to continue the exercises to prevent regression . Also discussed with pt the options of augmenting her paralyzed vocal fold for increased swallow safety as well as improved vocal quality. Provided information re; augmentation of vocal folds for her consideration. Recommended that we d/c pt at this time to HEP. Assessment Patient Response to Treatment Excellent Rehab Potential Good Diet Recommendations Recommendations Continue Current Diet Medication Recommendations As Tolerated Treatment Plan Appropriate for Continued Therapy No Therapy Recommendations Orolaryngeal exercises are recommended to 1) increase adduction strength of the vocal folds and 2) increase airway protection at the vocal fold level Tongue base and laryngeal elevation exercises targeting improved hyolaryngeal elevation and increased airway protection at the laryngeal level. Dysphagia Goals Mela will continue HEP exercises after d/c Follow Up Plan Discharge Referrals/Other Recommended Referrals Primary Care Physician,ENT Consult
--- NOTE | 2020-05-04 09:21 | ST.IPDYTX ---
Visit Care Team Role Provider Type Shanti Ariza PA-C Primary Care Provider Advanced Dairy Farmer Specialty: Internal Medicine Address: [address] [place] [address], [id number] Email: [email or web address] Torres Weiner MD Attending Provider Physician Referring Provider Specialty: Ear, Nose, Throat Address: [facility] [place] [address], [address] Email: [email or web address] JAVA ENGINEER Dysphagia Treatment JAVA ENGINEER Dysphagia Treatment Start: 03/08/20 14:26 Freq: Status: Active Protocol: Document 05/04/20 09:19 LNK (Rec: 05/04/20 09:20 LNK [id number]) Dysphagia Treatment Session Time Visit Start Time 08:30 Visit Stop Time 09:15 Total Visit Minutes 45 Visit Information Visit Number 5 Plan of Care Dates 03/08/20-05/08/20 Setting Assessment Location Outpatient Care Visit Type Note Type Discharge Summary Patient Information Identification Type Name,Picture Subjective Observations Pt was on time for appointment Treatment Treatment Activities Reviewed swallowing exercises and she demonstrated exercises prescribed. Pt reported that her swallowing,has improved significantly. She has had no coughing episodes and feels te exercises have been helpfu . Reviewd her current HEP and she is to continue the exercises to prevent regression . Also discussed with pt the optionds of augmenting her paralyzed vocal fold for increased swallow safety as well as improved vocal quality. Provided information re; augmentation of vocal folds for her consideration. Recommended that we d/c pt at this time to HEP. Assessment Patient Response to Treatment Excellent Rehab Potential Good Diet Recommendations Recommendations Continue Current Diet Medication Recommendations As Tolerated Treatment Plan Appropriate for Continued Therapy No Dysphagia Goals Mela will continue HEP exercises after d/c Follow Up Plan Discharge Referrals/Other Recommended Referrals Primary Care Physician,ENT Consult
== END 2020-05-07 09:02 ==
LOC: SP 08:30
PROVIDERS: PCP Physician Assistant; Referring Provider Otolaryngology; Visit Provider Otolaryngology
DX: R49.0 Dysphonia (principal); J38.01 Paralysis of vocal cords and larynx, unilateral; R13.19 Other dysphagia
CPT/HCPCS: 92526

== ENCOUNTER → 2020-05-17 11:19 | Outpatient (CLI) | payer MEDICARE, SELFPAY ==
[2020-05-17 12:51] LABS: TSH w/ Reflex to FT4 0.81 uIU/mL (0.47-4.68)
== END ==
PROVIDERS: PCP Physician Assistant; Referring Provider Physician Assistant; Visit Provider Physician Assistant
DX: E03.9 Hypothyroidism, unspecified (principal)
CPT/HCPCS: 36415; 84443

== ENCOUNTER → 2020-08-27 14:49 | Outpatient (CLI) | payer MEDICARE, SELFPAY ==
[2020-08-27] MEDS: COVID-19 VACC #1, MRNA(MOD) 100 MCG/0.5 ML VIAL IM (14:56)
== END ==
PROVIDERS: PCP Physician Assistant; Visit Provider Internal Medicine
DX: Z23 Encounter for immunization (principal)
CPT/HCPCS: 0011A; 91301

== ENCOUNTER → 2020-09-10 10:10 | Outpatient (CLI) | payer MEDICARE, SELFPAY ==
[2020-09-10 11:09] LABS: Add Manual Diff / Slide Review NO; Basophils Absolute Auto 0 /uL (0-100); Basophils Percent Auto 0.9 % (0-2); Eosinophils Absolute Auto 100 /uL (0-450); Eosinophils Percent Auto 1.4 % (2-4); Hematocrit 41.2 % (36-46); Hemoglobin 13.7 g/dL (12.0-16.0); Lymphocytes Absolute Auto 1100 /uL (1100-4500); Mean Corpuscular HGB Conc 33.3 % (30-36); Mean Corpuscular Hemoglobin 30.4 PG (26-34); Mean Corpuscular Volume 91.2 fL (80-100); Monocytes Absolute Auto 400 /uL (0-900); Monocytes Percent Auto 10.7 % (3-14); Neutrophils Absolute Auto 2100 /uL (1500-7000); Platelet Count 210 X10^3/uL (150-400); Red Blood Cell Count 4.51 X10^6/uL (4.0-5.2); Red Cell Distribution Width 13.1 % (11.6-14.8); White Blood Cell Count 3.7 X10^3/uL (4.5-11.0)
[2020-09-10 11:15] LABS: Alanine Aminotransferase 22 IU/L (<35); Albumin 3.9 g/dL (3.5-5.0); Albumin Globulin Ratio 1.6 (1.0-2.8); Alkaline Phosphatase 89 U/L (38-126); Aspartate Aminotransferase 31 IU/L (14-36); BUN Creatinine Ratio 28.1 (6-22); Bilirubin Total 0.3 mg/dL (0.2-1.3); Blood Urea Nitrogen 27 mg/dL (7-17); Calcium 8.8 mg/dL (8.4-10.2); Carbon Dioxide 30 mmol/L (22-32); Chloride 106 mmol/L (98-107); Cholesterol 187 mg/dL (140-199); Globulin 2.5 g/dL (1.7-4.1); Glucose 98 mg/dL (80-110); HDL Cholesterol 93 mg/dL (40-60); HEMOLYSIS < 15 (0-50); LDL Cholesterol Calculated 83 mg/dL (<100); Potassium 4.6 mmol/L (3.4-5.1); Sodium 139 mmol/L (137-145); Total Protein 6.4 g/dL (6.3-8.2); Triglycerides 56 mg/dL (35-150)
[2020-09-10 11:46] LABS: TSH w/ Reflex to FT4 0.65 uIU/mL (0.47-4.68)
== END ==
PROVIDERS: PCP Physician Assistant; Referring Provider Physician Assistant; Visit Provider Physician Assistant
DX: E03.9 Hypothyroidism, unspecified (principal); D72.819 Decreased white blood cell count, unspecified; E78.5 Hyperlipidemia, unspecified
CPT/HCPCS: 36415; 80053; 80061; 84443; 85025

== ENCOUNTER → 2020-09-24 14:53 | Outpatient (CLI) | payer MEDICARE, SELFPAY ==
[2020-09-24] MEDS: COVID-19 VACC #2, MRNA(MOD) 100 MCG/0.5 ML VIAL IM (15:10)
== END ==
PROVIDERS: PCP Physician Assistant; Visit Provider Internal Medicine
DX: Z23 Encounter for immunization (principal)
CPT/HCPCS: 0012A; 91301

== ENCOUNTER → 2021-02-26 10:24 | Outpatient (CLI) | payer MEDICARE, SELFPAY ==
--- NOTE | 2021-02-26 10:26 | DI.MG.S_ITS ---
BILATERAL DIGITAL SCREENING MAMMOGRAM 3D/2D WITH CAD: 02/26/2021 CLINICAL: Routine screening. Comparison is made to exams dated: 03/06/2018 mammogram, 03/30/2016 mammogram, and 01/07/2014 mammogram - [facility]. There are scattered fibroglandular elements in both breasts. Current study was also evaluated with a Computer Aided Detection (CAD) system. No significant masses, calcifications, or other findings are seen in either breast. There has been no significant interval change. IMPRESSION: NEGATIVE There is no mammographic evidence of malignancy. A 1 year screening mammogram is recommended. This exam was interpreted at Station ID: [id number]. NOTE: For mammograms, a report in lay terms will be sent to the patient. Approximately 15% of breast malignancies will not be visualized mammographically. In the management of a palpable breast mass, a negative mammogram must not discourage biopsy of a clinically suspicious lesion. Electronically Signed By: Vineet wallace/sandi:02/28/2021 09:27:03 letter sent: Normal Exam ACR BI-RADS Category 1: Negative [id number]
== END ==
PROVIDERS: PCP Physician Assistant; Referring Provider Physician Assistant; Visit Provider Physician Assistant
DX: Z12.31 Encounter for screening mammogram for malignant neoplasm of breast (principal)
CPT/HCPCS: 77063; 77067

== ENCOUNTER → 2024-02-12 15:18 | Outpatient (CLI) | payer MEDICARE, SELFPAY ==
--- NOTE | 2024-02-12 15:20 | DI.MRI.S_ITS ---
PROCEDURE: MR LUMBAR SPINE WO CON INDICATIONS: Spinal stenosis, lumbar region TECHNIQUE: Noncontrast sagittal T1 spin echo and T2 fast echo, sagittal STIR, and T2 fast spin echo through the lumbar spine. In cases with scoliosis, additional coronal T2 fast spin echo may be performed. COMPARISON: [facility], MR, MR LUMBAR SPINE WO CON, 07/26/2018, 16:43. FINDINGS: Image quality: Excellent. Alignment and Curvature: Trace anterolisthesis of L3 on L4. Trace retrolisthesis of L4 on L5. Bone Marrow: Marrow is of normal overall signal. No acute vertebral body compression fractures. Spinal Cord: Conus medullaris terminates at the L1 level. Visualized cord demonstrates normal signal and size. Paraspinous Soft Tissues: No paravertebral masses. T12-L1: No canal stenosis or foraminal stenosis. L1-L2: Minimal disc bulge. Mild facet hypertrophy. Macro canal L2-L3: Development of a mild disc bulge. Facet hypertrophy. Epidural lipomatosis. No significant canal stenosis or foraminal stenosis. L3-L4: Similar findings. Trace anterolisthesis. Disc bulge. Facet hypertrophy. Borderline canal stenosis. [id number]-[id number] bilateral foraminal stenosis. L4-L5: Similar findings. Disc bulge. Facet hypertrophy. Mild canal stenosis. Mild bilateral foraminal stenosis. L5-S1: Similar findings. Disc bulge. Facet hypertrophy. No canal stenosis. [id number] bilateral foraminal stenosis. IMPRESSION: 1. Multilevel underlying facet arthropathy. 2. Canal stenosis is borderline at L3-L4 and mild at L4-L5. 3. No foraminal nerve root impingement noted. Dictated by: Walker Henderson M.D. on 02/12/2024 at 20:56 Approved by: Walker Henderson M.D. on 02/12/2024 at 21:00
== END ==
PROVIDERS: PCP Physician Assistant; Referring Provider Physical Medicine & Rehabilitation Pain Medicine; Visit Provider Physical Medicine & Rehabilitation Pain Medicine
DX: M48.061 Spinal stenosis, lumbar region without neurogenic claudication (principal); M48.07 Spinal stenosis, lumbosacral region; M47.816 Spondylosis without myelopathy or radiculopathy, lumbar region; M47.817 Spondylosis without myelopathy or radiculopathy, lumbosacral region
CPT/HCPCS: 72148

== ENCOUNTER 2024-03-24 11:05 | Emergency (ER) | payer MEDICARE, SELFPAY ==
[2024-03-24 11:17] VITALS: BP 142/79; PULSE 81; RESP 18; TEMP 36.3; O2SAT 96; BMI 36.0
--- NOTE | 2024-03-24 11:24 | DI.RAD.S_ITS ---
PROCEDURE: XR SHOULDER RT MIN 2V INDICATIONS: Fall yesterday onto right side; R ribs and scapular pain TECHNIQUE: 3 views of the shoulder were acquired. COMPARISON: None. FINDINGS: Bones: No fractures or dislocations. No suspicious bony lesions. Visualized ribs appear intact. Glenohumeral and acromioclavicular joint space narrowing with associated osteophytosis. Soft tissues: No suspicious soft tissue calcifications. IMPRESSION: No acute bony abnormality. Moderate shoulder osteoarthritis. Dictated by: Prieto Cash M.D. on 03/24/2024 at 12:21 Approved by: Prieto Cash M.D. on 03/24/2024 at 12:21
--- NOTE | 2024-03-24 11:24 | DI.RAD.S_ITS ---
PROCEDURE: XR SCAPULA RT INDICATIONS: Fall yesterday onto right side; R ribs and scapular pain TECHNIQUE: 2 views of the scapula were acquired. COMPARISON: None. FINDINGS: Bones: No fractures or dislocations. No suspicious bony lesions. Visualized ribs appear intact. Soft tissues: Overlying soft tissues appear normal. IMPRESSION: No acute bony abnormality. Dictated by: Prieto Cash M.D. on 03/24/2024 at 12:20 Approved by: Prieto Cash M.D. on 03/24/2024 at 12:20
--- NOTE | 2024-03-24 11:24 | DI.RAD.S_ITS ---
PROCEDURE: XR RIBS RT MIN 3V W CXR 1V INDICATIONS: Fall yesterday onto right side; R ribs and scapular pain TECHNIQUE: 2 views of the ribs were acquired, along with a single view chest. COMPARISON: None. FINDINGS: Surgical changes and devices: None. Bones and chest wall: No fractures or dislocations. No suspicious bony lesions. Overlying soft tissues appear unremarkable. Lungs and pleura: No pleural effusions or pneumothorax. Lungs appear clear. Mediastinum: Mediastinal contours appear normal. Heart size is normal. IMPRESSION: No displaced rib fracture or pneumothorax. Dictated by: Prieto Cash M.D. on 03/24/2024 at 12:20 Approved by: Prieto Cash M.D. on 03/24/2024 at 12:20
[2024-03-24 16:10] VITALS: BP 151/85; PULSE 81; RESP 16; O2SAT 99
--- NOTE | 2024-03-24 16:50 | ED_ITS ---
HPI - Fall General Chief Complaint: Fall Stated Complaint: Fell upstairs injured all over Time Seen by Provider: 03/24/24 16:43 Source: patient Mode of arrival: Ambulatory History of Present Illness HPI Narrative: 78-year-old female had fall to starting to go upstairs at brother's house yesterday, complains of pain to the right chest and right shoulder and scapula area. No injury to head or face, no neck pain. No pain to upper back midback low back. No lower extremity discomfort. No pain to the left upper extremity. She does not have pain to right arm, elbow, forearm, wrist, hand, fingers. She denies trouble breathing, but does have some discomfort on deep breathing due to right chest wall discomfort. Related Data Home Medications Medication Instructions Recorded Confirmed levothyroxine 112 mcg tablet 0.88 mg PO QAM ##0 11/02/17 03/31/20 meloxicam 7.5 mg tablet (Mobic) 7.5 mg PO AMCC ##0 11/02/17 03/31/20 simvastatin 10 mg tablet 10 mg PO HS ##0 11/02/17 03/31/20 Previous Rx's Medication Instructions Recorded tobramycin 0.3 % eye drops 1 drp OPHTH Q4H #10 mL 11/02/17 Allergies Allergy/AdvReac Type Severity Reaction Status Date / Time No Known Drug Allergies Allergy Verified 03/31/20 09:01 Review of Systems Review of Systems Narrative: See HPI Patient History Social History household members: spouse Smoking Status: Never smoker Smoking Status: Never smoker alcohol intake frequency: a few times a week Substance Use Type: does not use Exam Narrative Exam Narrative: GENERAL: Well-developed patient, in mild distress. HEAD: Atraumatic. Normocephalic. EYES: Pupils equal round and reactive. Extraocular motions intact. No scleral icterus. No injection or drainage. ENT: Nose without bleeding, purulent drainage. Throat without erythema, tonsillar hypertrophy or exudate. Airway patent. NECK: Trachea midline. Non tender CARDIOVASCULAR: Regular rate and rhythm without murmurs, gallops, or rubs. RESPIRATORY: Clear to auscultation. Breath sounds equal bilaterally. No wheezes, rales, or rhonchi. Right lateral chest wall discomfort. No rash or bruising. No paradoxical movements. No crepitance. GASTROINTESTINAL: Abdomen soft, non-tender, nondistended. EXTREMITIES: No edema or joint tenderness. No gross tenderness to the right anterior lateral shoulder, nor AC joint, nor along scapula or trapezius. Normal range of motion right shoulder. No gross deformity to the right upper extremity. Full range motion right elbow, wrist, hand, fingers. BACK: Nontender without deformity or crepitance. No flank tenderness. NEURO: AOx3. SKIN: No rash or erythema of visible areas Initial Vital Signs Initial Vital Signs: Vital Signs Temperature 97.3 F L 03/24/24 11:17 Pulse Rate 81 03/24/24 11:17 Respiratory Rate 18 03/24/24 11:17 Blood Pressure 142/79 H 03/24/24 11:17 Pulse Oximetry 96 03/24/24 11:17 Oxygen Delivery Method Room Air 03/24/24 11:17 Course Orders Ordered: ED Orders 03/24/24 11:24 XR ribs RT min 3V w CXR1V Stat XR scapula RT Stat XR shoulder RT min 2V Stat Vital Signs Vital signs: Vital Signs - 8 hr 03/24/24 16:10 Pulse Rate 81 Respiratory Rate 16 Blood Pressure 151/85 H Pulse Oximetry 99 Oxygen Delivery Method Room Air MDM - Fall Imaging Data Extremity x-ray #1: Radiologist's Impression: [address] [address] XRay Report Signed Patient: Mela Jordan MR#: [id number] : 1945 Acct:[id number] Age/Sex: 78 / F Date of Service: 03/24/24 Loc: ED Accession Number: [id number] Procedure: XR shoulder RT min 2V Ordering Provider: David Maria MD PROCEDURE: XR SHOULDER RT MIN 2V INDICATIONS: Fall yesterday onto right side; R ribs and scapular pain TECHNIQUE: 3 views of the shoulder were acquired. COMPARISON: None. FINDINGS: Bones: No fractures or dislocations. No suspicious bony lesions. Visualized ribs appear intact. Glenohumeral and acromioclavicular joint space narrowing with associated osteophytosis. Soft tissues: No suspicious soft tissue calcifications. IMPRESSION: No acute bony abnormality. Moderate shoulder osteoarthritis. Dictated by: Prieto Cash M.D. on 03/24/2024 at 12:21 Approved by: Prieto Cash M.D. on 03/24/2024 at 12:21 Extremity x-ray #2: Radiologist's Impression: Close Ribs X-Ray (Signed) Prieto Cash - 03/24/24 Scapula X-Ray (Signed) ShaileshPrieto - 03/24/24 Shoulder X-Ray (Signed) Prieto Cash - 03/24/24 Launch?Image [address] [address] XRay Report Signed Patient: Mela Jordan MR#: [id number] : 1945 Acct:[id number] Age/Sex: 78 / F Date of Service: 03/24/24 Loc: ED Accession Number: [id number] Procedure: XR scapula RT Ordering Provider: David Maria MD PROCEDURE: XR SCAPULA RT INDICATIONS: Fall yesterday onto right side; R ribs and scapular pain TECHNIQUE: 2 views of the scapula were acquired. COMPARISON: None. FINDINGS: Bones: No fractures or dislocations. No suspicious bony lesions. Visualized ribs appear intact. Soft tissues: Overlying soft tissues appear normal. IMPRESSION: No acute bony abnormality. Dictated by: Prieto Cash M.D. on 03/24/2024 at 12:20 Approved by: Prieto Cash M.D. on 03/24/2024 at 12:20 Chest x-ray with right rib series: Radiologist's Impression: [address] [address] XRay Report Signed Patient: Mela Jordan MR#: [id number] : 1945 Acct:[id number] Age/Sex: 78 / F Date of Service: 03/24/24 Loc: ED Accession Number: [id number] Procedure: XR ribs RT min 3V w CXR1V Ordering Provider: David Maria MD PROCEDURE: XR RIBS RT MIN 3V W CXR 1V INDICATIONS: Fall yesterday onto right side; R ribs and scapular pain TECHNIQUE: 2 views of the ribs were acquired, along with a single view chest. COMPARISON: None. FINDINGS: Surgical changes and devices: None. Bones and chest wall: No fractures or dislocations. No suspicious bony lesions. Overlying soft tissues appear unremarkable. Lungs and pleura: No pleural effusions or pneumothorax. Lungs appear clear. Mediastinum: Mediastinal contours appear normal. Heart size is normal. IMPRESSION: No displaced rib fracture or pneumothorax. Dictated by: Prieto Cash M.D. on 03/24/2024 at 12:20 Approved by: Prieto Cash M.D. on 03/24/2024 at 12:20 MDM Narrative Medical decision making narrative: Fall with right lateral chest pain and right scapular area discomfort. Mild right lateral chest wall tenderness on exam, no crepitance, no bruising. No respiratory distress. No tenderness along the right clavicle nor scapula nor trapezius. X-rays right ribs with chest, shoulder, clavicle done through triage. Home with . She takes meloxicam, encouraged to take her usual regular doses. Discharge Plan Departure Patient Disposition: Home Clinical Impression: Fall from ground level, Right shoulder strain, Chest wall contusion, Rib pain on right side Activity Restrictions/Additional Instructions: Ground level fall yesterday, with pain to the sternal part of the chest, right lateral chest and right shoulder. X-rays of the right ribs and chest negative for lung injury or rib fractures that were seen by radiograph. X-rays right scapula shoulder blade and right shoulder also negative. You are able to move your arm well. You had some chest wall tenderness to exam. He had a mechanical fall from tripping event. Fortunately there is no underlying significant injury. However chest wall injuries can cause patient is to not breathe deeply, and lead to localized lung collapsed and pneumonia complication infections. Use incentive spirometer to help breathe deeply. Take your meloxicam. You can also take Tylenol as needed. Recheck lungs in clinic in 2 days. Return to this/nearest emergency department for any change worsening symptoms or any concerns prior Prescriptions: No Action simvastatin 10 MG tablet 10 mg PO HS Qty: 0 meloxicam [Mobic] 7.5 MG tablet 7.5 mg PO AMCC Qty: 0 levothyroxine 112 MCG tablet 0.88 mg PO QAM Qty: 0 tobramycin 5 ML drops 1 drp OPHTH Q4H Qty: 10 0RF Referrals: Shanti Ariza PA-C [Primary Care Provider] - Stand Alone Forms: Patient Portal/API
== END 2024-03-24 17:15 | disposition home or self-care (01) ==
PROVIDERS: Emergency Provider Emergency Medicine; PCP Physician Assistant
DX: S46.911A Strain of unspecified muscle, fascia and tendon at shoulder and upper arm level, right arm, initial encounter (principal); R07.81 Pleurodynia; S20.211A Contusion of right front wall of thorax, initial encounter; W10.9XXA Fall (on) (from) unspecified stairs and steps, initial encounter
CPT/HCPCS: 71101; 73010; 73030; 99281

== ENCOUNTER → 2024-09-26 10:13 | Outpatient (CLI) | payer MEDICARE, SELFPAY ==
[2024-09-26 12:04] LABS: Add Manual Diff / Slide Review NO; Basophils Absolute Auto 0 /uL (0-100); Basophils Percent Auto 1.2 % (0-2); Eosinophils Absolute Auto 0 /uL (0-450); Hematocrit 40.6 % (36-46); Hemoglobin 13.4 g/dL (12.0-16.0); Lymphocytes Absolute Auto 900 /uL (1100-4500); Lymphocytes Percent Auto 25.8 % (25-40); Mean Corpuscular HGB Conc 33.1 % (30-36); Mean Corpuscular Hemoglobin 30.6 PG (26-34); Mean Corpuscular Volume 92.5 fL (80-100); Monocytes Absolute Auto 400 /uL (0-900); Neutrophils Absolute Auto 2200 /uL (1500-7000); Platelet Count 195 X10^3/uL (150-400); Red Blood Cell Count 4.38 X10^6/uL (4.0-5.2); Red Cell Distribution Width 13.4 % (11.6-14.8); White Blood Cell Count 3.6 X10^3/uL (4.5-11.0)
[2024-09-26 13:12] LABS: Alanine Aminotransferase 23 IU/L (<35); Albumin 3.9 g/dL (3.5-5.0); Albumin Globulin Ratio 1.7 (1.0-2.8); Alkaline Phosphatase 86 U/L (38-126); Aspartate Aminotransferase 33 IU/L (14-36); BUN Creatinine Ratio 28.6 (6-22); Bilirubin Total 0.6 mg/dL (0.2-1.3); Blood Urea Nitrogen 30 mg/dL (7-17); Calcium 8.7 mg/dL (8.4-10.2); Carbon Dioxide 25 mmol/L (22-32); Chloride 107 mmol/L (98-107); Cholesterol 204 mg/dL (140-199); Estimated Glomerular Filt Rate 55 mL/min (>60); Globulin 2.3 g/dL (1.7-4.1); Glucose 90 mg/dL (80-110); HDL Cholesterol 108 mg/dL (40-60); HEMOLYSIS < 15 (0-50); LDL Cholesterol Calculated 82 mg/dL (<100); Potassium 4.7 mmol/L (3.4-5.1); Sodium 140 mmol/L (137-145); Total Protein 6.2 g/dL (6.3-8.2); Triglycerides 68 mg/dL (35-150)
[2024-09-26 13:41] LABS: TSH w/ Reflex to FT4 0.38 uIU/mL (0.47-4.68)
[2024-09-26 13:59] LABS: Vitamin B12 Reflex MMA if <400 624 pg/mL (239-931)
[2024-09-26 15:05] LABS: Free T4, Direct Thyroxine 1.47 ng/dL (0.78-2.19)
[2024-09-26 17:43] LABS: Hemoglobin A1C% w Est Avg Glu 5.6 % (4.0-6.0)
[2024-09-30 20:10] LABS: HIV 1 RNA Non Reactive (Non Reactive); HIV 2 RNA Non Reactive (Non Reactive)
== END ==
PROVIDERS: PCP Family Medicine; Referring Provider Family Medicine; Visit Provider Family Medicine
DX: R41.3 Other amnesia (principal); Z13.1 Encounter for screening for diabetes mellitus; E89.0 Postprocedural hypothyroidism
CPT/HCPCS: 36415; 80053; 80061; 82607; 83036; 84439; 84443; 85025; 87535; 87538